=== PATIENT | female | born 1955 | race Caucasian/White ===

== ENCOUNTER 2021-12-24 12:05 | Inpatient (IN) | payer MEDICARE, OTHER ==
[~2021-12-24] VITALS: Ht 160 cm; Wt 70.8 kg
--- NOTE | 2021-12-24 12:25 | NUR ---
RECEVED PT 66 YRS FEMALE CAME FROM HOME accompany by KARLEY C/O ABDOMINAL pain and constipation for 2 week abdomina soft no distention none tender to touch
--- NOTE | 2021-12-24 12:50 | NUR ---
INSRTED JUSTIN BOO FR # 20 ON RT AC BLOOD DROW AND SENT TO LAB
[2021-12-24] MEDS ORDERED: MINERAL OIL 133 ML (PYXIS) 1 EA ENEMA RC ONE ×2 (13:00→13:02)
[2021-12-24] MEDS ORDERED: MAGNESIUM CITRATE 296 ML BOTTLE PO ONE (13:00)
[2021-12-24 13:23] LABS: BASOPHILS % (AUTO) 0.6 % (0.0-2.0); HEMATOCRIT 42 % (33-45); HEMOGLOBIN 14.4 g/dL (11.5-14.8); LYMPHOCYTES % (AUTO) 29.3 % (20.0-44.0); MEAN CORPUSCULAR HGB CONC 34 g/dl (31.0-36.0); MEAN CORPUSCULAR VOLUME 94 fL (82-100); MONOCYTES # (AUTO) 0.7 K/uL (0.1-1.30); MONOCYTES % (AUTO) 10.1 % (2.0-12.0); PLATELET COUNT (AUTO) 267 K/uL (150-450); RED BLOOD CELL COUNT(AUTO) 4.47 MIL/uL (4.0-5.2); WHITE BLOOD COUNT (AUTO) 6.7 K/uL (4.3-11.0)
--- NOTE | 2021-12-24 13:25 | NUR ---
FLEET mineral oil done 133 ml sbdomine soft no distention tolrated will
[2021-12-24] MEDS ORDERED: PEG 3350/NA SULF,BICARB,CL/KCL 4,000 ML BOTTLE PO ONE (13:30)
--- NOTE | 2021-12-24 13:45 | NUR ---
SATRTED GOLYTLY SLOWLY AT BED SIDE 1000 ML DRINGING SLOWLY
[2021-12-24] MEDS ORDERED: POLY17PO4 PO (13:49)
[2021-12-24] MEDS ORDERED: DOCU-141 PO (13:49)
[2021-12-24 14:20] LABS: ALBUMIN 3.3 g/dL (3.4-5.0); BILIRUBIN,DIRECT 0.2 mg/dL (0.0-0.2); BILIRUBIN,TOTAL 0.6 mg/dL (0.2-1.0); CALCIUM, SERUM 9.1 mg/dL (8.5-10.1); POTASSIUM 3.7 mmol/L (3.5-5.1); TOTAL PROTEIN, SERUM 7.8 g/dL (6.4-8.2)
--- NOTE | 2021-12-24 14:33 | NUR ---
DR. GAFFNEY AWARE ABOUT HR 150B/MIN
[2021-12-24] MEDS ORDERED: IV NS 0.9% 500 ML BAG IV ONE (15:00)
--- NOTE | 2021-12-24 15:15 | NUR ---
USED WC FOR BM PT SAID FEELING BEATER AT THIS TIME ABDOMINE SOFT NONE TONDER TO TOUCH
--- NOTE | 2021-12-24 15:27 | NUR ---
MOVE SHEET SUBMITTED.
--- NOTE | 2021-12-24 15:30 | NUR ---
EKG DONE AT BED SIDE
--- NOTE | 2021-12-24 15:40 | NUR ---
[facility] CALLED CVOR NURSE PAGED.
--- NOTE | 2021-12-24 15:55 | NUR ---
TO CT SCAN OF ABDOMIN VIA SYDNEE
[2021-12-24] MEDS ORDERED: DILTIAZEM HCL 50 MG IV IV ONE (16:00)
[2021-12-24] MEDS ORDERED: DILTIAZEM HCL 50 MG IV ONE (16:06)
--- NOTE | 2021-12-24 16:10 | NUR ---
PT REFUSED CARDIZEM FOR HEART NOW FULLY AND VERBLIZED UNDERSTOOD HR 159B/H
--- NOTE | 2021-12-24 16:23 | NUR ---
SWAB FOR COVID19 SENT TO LAB
[2021-12-24] MEDS ORDERED: LORAZEPAM INJ 2 MG/ML VIAL IV ONE (16:30)
--- NOTE | 2021-12-24 16:37 | NUR ---
NIRMAL RODRÍGUEZ ) DISSCACED REFUSED ATIVAN AT THIS TIME AND REQUSTED ATIVAN
[2021-12-24] MEDS ORDERED: HYDR25TA4 PO (16:40)
[2021-12-24] MEDS ORDERED: PRIM50TA27 PO (16:40)
[2021-12-24] MEDS ORDERED: CARV6.252 PO (16:40)
[2021-12-24] MEDS ORDERED: BUSP5TAB3 PO (16:40)
[2021-12-24] MEDS ORDERED: DOCU100C36 PO (16:40)
[2021-12-24] MEDS ORDERED: AMLO-212 PO (16:40)
[2021-12-24] MEDS ORDERED: DONE5TAB34 PO (16:40)
[2021-12-24] MEDS ORDERED: LORAZEPAM INJ 2 MG/ML VIAL ONE (16:42)
--- NOTE | 2021-12-24 16:53 | NUR ---
ATIVAN 1MG IVP GIVEN
--- NOTE | 2021-12-24 17:14 | NUR ---
PT ASLEEPY AND RESING NO SOB OR CHEST PAIN HR 147B/MIN
--- NOTE | 2021-12-24 18:12 | NUR ---
PT RESTING AND ASLEEPY HR 156B/MIN
--- NOTE | 2021-12-24 18:30 | NUR ---
HOSPITALIST AT BED SIDE CASPER KINNEY ON PHOE CONDITION UP DATE ERAZO HR 155B/MIN NO SOB
[2021-12-24] MEDS ORDERED: NORT10CA PO (18:49)
[2021-12-24] MEDS ORDERED: ISTR20TA PO (18:49)
[2021-12-24] MEDS ORDERED: ONDANSETRON HCL/PF 4 MG/2 ML VIAL IVP PRN (19:00)
--- NOTE | 2021-12-24 19:36 | NUR ---
HAND OFF TO ADITYA LONDON
--- NOTE | 2021-12-24 21:31 | NUR ---
REPORT GIVEN TO LITA ARGUETA
--- NOTE | 2021-12-24 21:46 | NUR ---
PATIENT TRANSFERRED UNDER ACLS
[2021-12-24 22:00] VITALS: BP 113/84
[2021-12-24] MEDS: IV NS 0.9% 1,000 ML IV PRN (22:20)
[2021-12-24] MEDS: ENOXAPARIN SODIUM 60 MG/0.6 ML DISP.SYRIN SQ SCH (22:23)
--- NOTE | 2021-12-24 22:45 | NUR ---
ICU/RN: SPOKE WITH DAUGHTER KATHIE AND FAMILY AND PT AGREEING TO TREATMENT. SPOKE WITH AMRITA LEÓN AND SHE AGREES WITH DR. BRODERICK'S RECOMMENDATION OF ADENOSINE 6MG IVP x1. WILL PROCEED WITH PLAN OF CARE.
[2021-12-24 23:00] VITALS: BP 112/53
[2021-12-24] MEDS ORDERED: ADENOSINE 6 MG/2 ML VIAL IVP ONE (23:30)
--- NOTE | 2021-12-24 23:36 | NUR ---
ICU/RN: PT IN NSR @ RATE OF 80 BPM AFTER ADENOSINE PUSH.
[2021-12-25] VITALS (19 sets, daily range): BP systolic 108–136; BP diastolic 43–85
--- NOTE | 2021-12-25 02:08 | NUR ---
ICU/RN: PT COMPLAINT OF MIDSTERNAL CHEST PAIN. STATES IT MAY BE GAS. EKG ORDERED AND SHOWED NORMAL SINUS RHYTHM. NO ST CHANGES. TUMS GIVEN WILL REEVALUATE SHORTLY.
[2021-12-25] MEDS ORDERED: CALCIUM CARBONATE 500 MG TAB.CHEW PO PRN (02:30)
[2021-12-25] MEDS ORDERED: MORPHINE SULFATE INJ 2 MG/ML DISP.SYRIN IV ONE (03:00)
[2021-12-25 06:07] LABS: CALCIUM, SERUM 8.5 mg/dL (8.5-10.1); CREATININE 0.8 mg/dL (0.6-1.3); MAGNESIUM 2.5 mg/dL (1.8-2.4); PHOSPHORUS 3.2 mg/dL (2.5-4.9)
--- NOTE | 2021-12-25 06:10 | NUR ---
ICU/RN: PT REQUESTING BLOOD DRAW TO BE DONE LATER. WILL ENDORSE TO AM SHIFT.
--- NOTE | 2021-12-25 07:31 | NUR ---
ICU/RN PT RECEIVED IN BED, AWAKE, A&OX4, PARTNER AT BEDSIDE. PT SINUS RHYTHM AT 77 ON BEDSIDE MONITOR. LEFT AC 18G AND RIGHT AC 20G IV RUNNING NS AT 75CC/HR. BED LOCKED AND IN LOWEST POSITION, CALL LIGHT WITHIN REACH, 2 SIDE RAILS UP.
[2021-12-25 08:39] LABS: BASOPHILS % (AUTO) 0.2 % (0.0-2.0); EOSINOPHILS % (AUTO) 0.2 % (0.0-6.0); HEMATOCRIT 40 % (33-45); HEMOGLOBIN 13.1 g/dL (11.5-14.8); LYMPHOCYTES # (AUTO) 1.5 K/uL (0.8-4.8); LYMPHOCYTES % (AUTO) 21.8 % (20.0-44.0); MEAN CORPUSCULAR HGB CONC 33 g/dl (31.0-36.0); MEAN CORPUSCULAR VOLUME 99 fL (82-100); MONOCYTES # (AUTO) 0.5 K/uL (0.1-1.30); MONOCYTES % (AUTO) 7.2 % (2.0-12.0); NEUTROPHILS # (AUTO) 4.9 K/uL (1.8-8.9); NEUTROPHILS % (AUTO) 70.6 % (43.0-81.0); PLATELET COUNT (AUTO) 132 K/uL (150-450); RED BLOOD CELL COUNT(AUTO) 4.07 MIL/uL (4.0-5.2)
[2021-12-25] MEDS: ASPIRIN 81 MG TAB.CHEW PO SCH (08:47)
[2021-12-25] MEDS: busPIRone 5 MG TABLET PO SCH ×2 (08:47→17:08)
[2021-12-25] MEDS: ATORVASTATIN 10 MG TABLET PO SCH (08:47)
[2021-12-25] MEDS: AMLODIPINE BESYLATE 5 MG TABLET PO SCH (08:48)
[2021-12-25] MEDS: METOPROLOL TARTRATE 50 MG TABLET PO SCH ×2 (08:48→21:27)
[2021-12-25] MEDS: ENOXAPARIN SODIUM 60 MG/0.6 ML DISP.SYRIN SQ SCH ×3 (08:49→21:28)
[2021-12-25] MEDS ORDERED: ISTRADEFYLLINE 20 MG PO SCH (09:00)
--- NOTE | 2021-12-25 09:52 | NUR ---
ICU/RN PT TRANSFERRED TO ROOM 321-1 PER ACLS PROTOCOL. PT ON RA WITH NO SIGNS OF LABORED BREATHING. REPORT GIVEN TO VANIA LONDON AT BEDSIDE.
[2021-12-25] MEDS: IV NS 0.9% 1,000 ML IV PRN (10:07)
--- NOTE | 2021-12-25 10:15 | NUR ---
RN NOTE RECEIVED PT TRANSFER. PT RESTING IN BED C/O PAIN. ALERT AND ORIENTED X4. STABLE ON RA NO SIGNS OF RESPIRATORY DISTRESS OR SOB NOTED. ON TELE MONITOR READING NORMAL SINUS AT 75 BPM. IV IN THE LEFT AC 18G INFUSING NS AT 75ML/HR AND THE RIGHT AC 20G BOTH INTACT AND PATENT. PAIN MEDS GIVEN FOR PAIN. SAFETY CHECKS: BED LOCKED IN LOWEST POSITION, SIDE RAILS X2, CALL LIGHT WITHIN REACH. WILL CONTINUE TO MONITOR.
[2021-12-25] MEDS: ACETAMINOPHEN 325 MG TABLET PO PRN ×2 (10:28→19:37)
--- NOTE | 2021-12-25 11:30 | NUR ---
RN NOTE PT WAS TAKEN DOWN TO CT.
[2021-12-25] MEDS ORDERED: NITROGLYCERIN 0.4 MG/TAB BOTTLE ONE (12:04)
[2021-12-25] MEDS ORDERED: IOHEXOL-350 100 ML VIAL IV ONE (12:04)
[2021-12-25] MEDS ORDERED: METOPROLOL TARTRATE INJ 5 MG/5 ML AMPUL ONE (12:04)
[2021-12-25] MEDS: METOPROLOL TARTRATE INJ 5 MG/5 ML AMPUL IVP PRN ×2 (12:17→12:22)
--- NOTE | 2021-12-25 12:29 | NUR ---
pt consented to CTA heart; denies CP or SOB, understood instructions, all questions answered; given at total of metoprolol 10 mg IV and NTG SL 0.4 mg; tolerated procedure; VSSpost procedure; report given to LITA Mullins latest BP at 140/72
[2021-12-25] MEDS ORDERED: IV NS 0.9% 500 ML IV PRN (12:30)
[2021-12-25] MEDS ORDERED: NITROGLYCERIN 0.4 MG/TAB BOTTLE SL ONE (12:30)
--- NOTE | 2021-12-25 18:33 | NUR ---
LICENSE REGISTRATION EXAMINER CLOSING NOTES PATIENT ON BED RESTING AND A/O X4. ON ROOM AIR TOLERATING WELL. NO SOB NOTED. NOT IN DISTRESS. WITH NO COMPLAINTS OF PAIN OR DISCOMFORT AT THIS TIME. ON TELE MONITOR CURRENTLY READING SINUS RHYTHM AT 75BPM. WITH IV ACCESS AT THE RIGHT AC G18 SALINE LOCKED, PATENT AND INTACT AND AT LEFT AC G20 WITH IVF NS AT 75ML/HR INFUSING WELL. NO IV INFILTRATION NOTED. DUE MEDS GIVEN. SAFETY MEASURES IN PLACED. CALL LIGHT WITHIN REACH. BED ON LOWEST LOCKED POSITION, SIDE RAILS UP X2. WILL ENDORSE TO NEXT SHIFT FOR ANDREA.
--- NOTE | 2021-12-25 19:53 | NUR ---
GLASS OR MIRROR INSPECTOR OPENING NOTES: RECEIVED PATIENT AWAKE IN BED WITH FAMILY, BED IN LOW POSITION CALL LIGHTS WITHIN REACH, NO COMPLAIN OF PAIN AND DISCOMFORT AT THIS TIME, ON ROOM AIR SATURATING WELL PATIENT WITH IV LINE AT RAC#20 WITH ONGOING NSS@75ML/HR INFUSING WELL, ON TELE MONITOR- S78 NO CHANGES HAS BEEN OBSERVED, PATIENT KEPT CLEAN AND DRY REMIND PATIENT TO USE CALL LIGHTS , ALL NEEDS MET WILL CONTINUE TO MONITOR.
[2021-12-25] MEDS: NORTRIPTYLINE HCL 10 MG CAPSULE PO SCH (21:29)
[2021-12-25] MEDS: PRIMIDONE 50 MG TABLET PO SCH (21:29)
[2021-12-25] MEDS: DONEPEZIL 5 MG TABLET PO SCH (21:29)
--- NOTE | 2021-12-25 21:54 | NUR ---
RN NOTES: PATIENT HAS ENOXAPARIN SODIUM 60MG AT BEDTIME PATIENT REFUSED EXPLAIN RISK AND BENEFITS BUT PATIENT STILL REFUSED, PATIENT HAS HX OF ANXIETY AND STARTED TO BECOME ANXIOUS, PARTNER ON BEDSIDE DURING REFUSALMOF MEDICATIONS.
[2021-12-26] VITALS: BP 120/54
[2021-12-26] MEDS: IV NS 0.9% 1,000 ML IV PRN ×2 (02:17→19:59)
[2021-12-26 04:00] VITALS: BP 124/68
--- NOTE | 2021-12-26 06:50 | NUR ---
MS RN CLOSING NOTES: PATIENT SLEEP IN BED COMFORTABLY, ACCOMPANIED BY FAMILY, BED IN LOW POSITION, CALL LIGHTS WITHIN REACH, NO COMPLAIN OF PAIN AND DISCOMFORT AT THIS TIME ON ROOM AIR SATURATING WELL, PATIENT IS A/OX4 ABLE TO MAKE NEEDS KNOWN,ON TELE MONITOR- SR-62, AMBULATORY WITH ASSISTANCE, WITH ONGOING 0.9NSS@75ML/HR INFUSING WELL, PATIENT KEPT CLEAN AND DRY ALL NEEDS MET ENDORSE TO INCOMING SHIFT.
[2021-12-26 06:55] LABS: CALCIUM, SERUM 8.1 mg/dL (8.5-10.1); CREATININE 0.8 mg/dL (0.6-1.3); MAGNESIUM 1.9 mg/dL (1.8-2.4); PHOSPHORUS 3.1 mg/dL (2.5-4.9); POTASSIUM 3.2 mmol/L (3.5-5.1)
--- NOTE | 2021-12-26 07:20 | NUR ---
RN OPENING NOTE RECEIVED PT IN BED A/O X4. NO SOB OR RESPIRATORY DISTRESS NOTED. PT ON TELE READING NSR AT 62BPM. NO COMPLAINTS OF PAIN OR CHEST PAIN AT THIS TIME. IV IN LEFT AC 18G, AND RIGHT AC 20G INTACT AND PATIENT, RIGHT AC INFUSING NS AT 75ML/HR. SAFETY MEASURES: BED LOCKED, IN LOWEST POSITION, SIDE RAILS X2, CALL LIGHT WITHIN REACH. WILL CONTINUE TO MONITOR CLOSELY.
[2021-12-26 08:00] VITALS: BP 126/63
[2021-12-26] MEDS: AMLODIPINE BESYLATE 5 MG TABLET PO SCH (09:12)
[2021-12-26] MEDS: ASPIRIN 81 MG TAB.CHEW PO SCH (09:12)
[2021-12-26] MEDS: ATORVASTATIN 10 MG TABLET PO SCH (09:13)
[2021-12-26] MEDS: METOPROLOL TARTRATE 50 MG TABLET PO SCH ×2 (09:13→21:10)
[2021-12-26] MEDS: busPIRone 5 MG TABLET PO SCH ×2 (09:13→17:00)
[2021-12-26] MEDS: ACETAMINOPHEN 325 MG TABLET PO PRN (09:15)
[2021-12-26] MEDS ORDERED: POTASSIUM CHLORIDE 20 MEQ TAB.PRT.SR PO ONE (10:00)
[2021-12-26] MEDS: ENOXAPARIN SODIUM 40 MG/0.4 ML DISP.SYRIN SQ SCH ×2 (10:03→11:31)
[2021-12-26] MEDS ORDERED: MAGNESIUM HYDROXIDE 30 ML UDC PO PRN (10:30)
[2021-12-26 11:07] LABS: *SPE A/G RATIO 0.9 (0.7-1.7); *SPE ALPHA-1-GLOBULIN 0.3 g/dL (0.0-0.4); *SPE ALPHA-2-GLOBULIN 0.8 g/dL (0.4-1.0); *SPE M-SPIKE Not Observed g/dL (Not Observed)
[2021-12-26] MEDS: POLYETHYLENE GLYCOL 3350 17 GM POWD.PACK PO SCH (11:31)
[2021-12-26 16:00] VITALS: BP 136/75
--- NOTE | 2021-12-26 18:31 | NUR ---
RN CLOSING NOTE, PT RESTING COMFORTABLY IN BED. ABLE TO MAKE NEEDS KNOWN. NO PAIN NOTED. NO SIGNS OF RESPIRATORY DISTRESS OR SOB NOTED, STABLE ON RA. ON TELE READING SR 66. PT C/O CONSTIPATION, MEDS GIVEN AND PT HAD TWO BM. STATES THE PRESSURE IS DIMINISHED. FAMILY AT BEDSIDE. IV LEFT AC 18G, RIGHT AC 20G INFUSING NS AT 75ML/HR. AMBULATES WITH ASSISTANCE. SAFETY MEASURES: CALL LIGHT WITHIN REACH, BED LOCKED IN LOW POSITION, SIDE RAILS UP X2. WILL ENDORSE TO BUSINESS LAW TEACHER FOR ANDREA.
--- NOTE | 2021-12-26 19:20 | NUR ---
received in bed A/OX4 FAMILY AT THE BEDSIDE DENIES PAIN CALL LIGHT WITHIN HER REACH BED ALARM ON SMILING
[2021-12-26 19:43] VITALS: BP 138/80
[2021-12-26 20:00] VITALS: BP 138/80
[2021-12-26] MEDS: NORTRIPTYLINE HCL 10 MG CAPSULE PO SCH (22:01)
[2021-12-26] MEDS: DONEPEZIL 5 MG TABLET PO SCH (22:01)
[2021-12-26] MEDS: PRIMIDONE 50 MG TABLET PO SCH (22:01)
[2021-12-27] VITALS: BP 149/76
[2021-12-27 04:00] VITALS: BP 135/78
--- NOTE | 2021-12-27 04:30 | NUR ---
CLOSING NOTES: ALERT AND ORIENTATED X3 AT THE BEDSIDE THRU THE NIGHT AND ASSIST HER WITH HER NEEDED CARE SHE HAS ANXIETY ATTACKS WHERE SHE WILL SHAKE AND SWING HER ARMS, HER KNOWS WHAT TO DO AND SHE REACTS BETTER TO HIS HELP. REMINDED HIM HER FREQUENTLY THAT I WANT TO HELP AND I AM WELLING. DO TO WEAKNESS IN HER LEGS AND HOW SHE SHACKS AND SWING HER LIMBS WHEN NEEDED TO VOID BEDSIDE COMMODE USED MUCH ASSIST NEEDED TO MAKE THE TRANSFER FROM BED TO CHAIR
--- NOTE | 2021-12-27 07:30 | NUR ---
RN OPENING NOTES RECEIVED PATIENT IN BED ,AWAKE, A/O X4, VERBALLY RESPONSIVE. NO SIGNS OF ACUTE DISTRESS NOTED. ON ROOM AIR, BREATHING EVEN AND UNLABORED. ON TELE MONITOR SHOWING SINUS RHYTHM, HR @65. DENIES ANY PAIN AT THIS TIME. WITH IV ACCESS ON LAC #20G, SL AND RIGHT AC #20G WITH NS @ 75ML/HR RUNNING. SAFETY MEASURE IN PLACE. BED IN LOWEST AND LOCKED POSITION, SIDE RAILS UP, CALL LIGHT PLACED WITHIN EASY REACH. WILL CONTINUE TO MONITOR PATIENT.
[2021-12-27] MEDS: ASPIRIN 81 MG TAB.CHEW PO SCH (08:50)
[2021-12-27] MEDS: busPIRone 5 MG TABLET PO SCH (08:50)
[2021-12-27] MEDS: POLYETHYLENE GLYCOL 3350 17 GM POWD.PACK PO SCH (08:51)
[2021-12-27] MEDS: METOPROLOL TARTRATE 50 MG TABLET PO SCH (08:51)
[2021-12-27] MEDS: ATORVASTATIN 10 MG TABLET PO SCH (08:51)
[2021-12-27] MEDS: AMLODIPINE BESYLATE 5 MG TABLET PO SCH (08:51)
[2021-12-27] MEDS ORDERED: METO50TA16 PO (09:41)
--- NOTE | 2021-12-27 14:00 | NUR ---
SACK SEWER MACHINE NOTES PATIENT DISCHARGED HOME IN STABLE CONDITION. PATIENT A/O X4, VERBALLY RESPONSIVE, NO SIGNS OF ACUTE DISTRESS NOTED. IV ACCESS ON LEFT AC AND RIGHT AC REMOVED, NO BLEEDING NOTED, PRESSURE DRESSING APPLIED TO SITE. ARM NAME BAND REMOVED. EXITCARE FOLDER GIVEN TO PATIENT AND FRIEND ESCOBAR. DISCHARGE INSTRUCTIONS PROVIDED TO PATIENT AND FRIEND WITH VERBALIZATION OF UNDERSTANDING. ALL BELONGINGS ACCOUNTED FOR. FORM SIGNED BY KEEGAN CODY. PATIENT LEFT UNIT @1355, ACCOMPANIED BY NATACHA FENG TO THE LOBBY. PATIENT PICKED UP BY FRIEND ESCOBAR VIA PRIVATE CAR. CN AWARE OF DISCHARGE.
[2021-12-27 20:00] VITALS: BP 154/70
== END 2021-12-27 13:50 | disposition home or self-care (01) | DRG 281 ==
LOC: ER 12:11 → TELE 20:10 → ICU 20:31 → TELE 12-25 09:43 → MED 12-27 09:55
PROVIDERS: ADMIT Nurse Practitioner Acute Care; ATTEND Nurse Practitioner Acute Care
DX: I47.1 Supraventricular tachycardia (principal); I21.A1 Myocardial infarction type 2; K56.609 Unspecified intestinal obstruction, unspecified as to partial versus complete obstruction; G20 Parkinson's disease; Z20.822 Contact with and (suspected) exposure to COVID-19; Z88.5 Allergy status to narcotic agent; Z88.8 Allergy status to other drugs, medicaments and biological substances; Z79.899 Other long term (current) drug therapy; R91.1 Solitary pulmonary nodule; I10 Essential (primary) hypertension; F41.9 Anxiety disorder, unspecified; N20.0 Calculus of kidney; K57.30 Diverticulosis of large intestine without perforation or abscess without bleeding; K59.09 Other constipation
CPT/HCPCS: 36415; 71045-TC; 75574; 80048-TC; 80061-TC; 80076-TC; 83690-TC; 83735-TC; 84100-TC; 84155; 84165; 84484-TC; 85025-TC; 85730-TC; 87081-TC; 93307-TC; C9803; G0378; J0153; J1650; J2060; J2270; J3490; J7030; J7040; Q9967